=== PATIENT | female | born 1975 | race Caucasian/White ===

== ENCOUNTER 2022-01-28 09:14 | Emergency (ER) | payer OTHER, BC ==
[~2022-01-28] VITALS: Ht 162.6 cm; Wt 63.5 kg
[~2022-01-28 09:14] MED LIST: CYCLOBENZAPRINE10 MG PO; CYCLOBENZAPRINE5 MG PO; CYMBALTA30 MG PO; DAYPRO600 MG PO; GABAPENTIN100 MG PO; HYDROCODON-ACE1 EA10 PO; IBUPROFEN800 MG PO; NORCO 5-325 TA1 EACH PO; ROBAXIN-750750 MG PO; TRAMADOL HCL50 MG PO; TRAZODONE HCL100 MG PO; TRAZODONE HCL50 MG PO; ULTRAM50 MG PO; XANAX0.5 MG PO
--- OUTSIDE RECORDS SUMMARY | 2022-01-28 09:17 | XMS ---
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 Jaden has no Care Guidelines for this patient. Baldemar VISIT COUNT (12 MO.) 1 UZMA Villaseñor TOTAL 1 NOTE: Visits indicate total known visits. ED/C VISIT TRACKING (12 MO.) 01/28/2022 09:14 UZMA Joe [place] TYPE: Emergency COMPLAINT: - TIGHTNESS IN CHEST INPATIENT VISIT TRACKING (12 MO.) No inpatient visits to display in this time frame [email or web address]
[2022-01-28] MEDS ORDERED: BUSPIRONE HCL5 MG PO (09:38)
[2022-01-28] MEDS ORDERED: BUPROPION HCL100 MG PO (09:39)
[2022-01-28] MEDS ORDERED: REXULTI0.5 MG PO (09:39)
[2022-01-28] MEDS ORDERED: LAMOTRIGINE25 MG PO (09:40)
[2022-01-28] MEDS ORDERED: SEROQUEL200 MG PO (10:30)
--- NOTE | 2022-01-29 00:22 | EKG ---
[facility] [address] [facility] [place] [address] Signed Normal sinus rhythm Left anterior fascicular block Abnormal ECG When compared with ECG of 09-NOV-2016 00:17, Left anterior fascicular block is now present Inverted T waves have replaced nonspecific T wave abnormality in Inferior leads Confirmed by SANNA REYES MD ([id number]) on 01/29/2022 12:22:18 AM Electronically Signed By: SANNA REYES MD 01/29/2221 PATIENT NAME: SANTIAGO RAMEY Electrocardiogram DATE OF : 75 PHYSICIAN: SANNA REYES MD REPORT #: [id number] REPORT IS CONFIDENTIAL AND NOT TO BE RELEASED WITHOUT AUTHORIZATION
== END 2022-01-28 13:19 | disposition home or self-care (01) ==
LOC: ED 09:14
DX: R07.89 Other chest pain (principal); G47.00 Insomnia, unspecified; M19.90 Unspecified osteoarthritis, unspecified site; F17.200 Nicotine dependence, unspecified, uncomplicated; Z88.0 Allergy status to penicillin; Z88.2 Allergy status to sulfonamides; Z88.1 Allergy status to other antibiotic agents; Z79.899 Other long term (current) drug therapy; Z79.891 Long term (current) use of opiate analgesic
CPT/HCPCS: 36415; 71045; 80053; 84484; 85025; 93005; 93010; 99285-25; A9270-GY

== ENCOUNTER 2022-04-10 09:25 | Day surgery (SDC) | payer BC, OTHER ==
[~2022-04-10] VITALS: Ht 162.6 cm; Wt 63.6 kg
[~2022-04-10 09:25] MED LIST changes: +BUPROPION HCL100 MG PO; +BUSPIRONE HCL5 MG PO; +LAMOTRIGINE25 MG PO; +REXULTI0.5 MG PO; +SEROQUEL200 MG PO
[2022-04-10] MEDS ORDERED: IBUPROFEN600 MG PO (11:57)
[2022-04-10] MEDS ORDERED: OXYCODON-ACETA1 EAC2 PO (11:57)
--- NOTE | 2022-04-10 11:57 | NUR ---
04/10/22 Claudine Curran 1147- PT ARRIVES TO PACU EASILY AROUSABLE TO VOICE. PT UPDATED ABOUT WHERE SHE IS IN. PT NODS. PT REPORTS NO PAIN OR NAUSEA. FALLS RIGHT BACK TO SLEEP WHEN NOT BEING TALKED TO. RESP EVEN AND UNLABORED. OXYGEN SAT HIGH 90'S TO 100% ON 10L VIA MASK. 1149- OXYGEN TITRATED DOWN TO 6L VIA MASK. 1152- PT TRYING TO SCRATCH HER NOSE. OXYGEN TITRATED OFF. EDUCATED PT TO BE CAREFUL SCRATCHING HER NOSE. PT PROVIDED A WARM BLANKET PER HER REQUEST. 1157- PT RESTING IN BED WITH HER EYES CLOSED. RESP EVEN AND UNLABORED. OXYGEN SAT MID 90'S ON RA.
[2022-04-10] MEDS ORDERED: ACETAMINOPHEN500 MG PO (11:58)
--- NOTE | 2022-04-10 12:45 | NUR ---
1225-PATIENT BACK TO ROOM FROM PACU ON RA. RECEIVED REPORT FROM JER AU. PATIENT IS AWAKE. RESP EVEN AND UNLABORED. RATES PAIN 1/10 AND DENIES NAUSEA. DRESSING HAS A SMALL AMOUNT OF RED DRAINAGE. AT BEDSIDE. LIDA SULMAGGER TURNED ON. PROVIDED PATIENT WITH WATER AND CRACKERS. CALL LIGHT WITHIN REACH.
--- NOTE | 2022-04-10 13:54 | NUR ---
1340 PATIENT ABLE TO MEET DISCHARGE CRITERIA. PATIENT WAS GIVEN DISCHARGE INSTRUCTIONS AND UNDERSTOOD. NO QUESTIONS AT THIS TIME. IV D/C'D WNL. PATIENT DRESSED SELF AND TOLERATED WELL. PATIENT WAS WHEELED OUT OF FACILITY TO PRIVATE AUTO WITH .
--- NOTE | 2022-04-10 13:56 | NUR ---
PT ALERT, ORIENTED AND SENT HER ON ERRANDS PT FEELS SHE WILL NEED AT DC. PT SOMEWHAT ANXIOUS, GAVE ENCOURAGEMENT AND COMFORT. PT REQUESTED PRAYER JUSTO WILL BE HERE BEFORE DC. WILL FOLLOW NEEDED
--- NOTE | 2022-04-11 15:57 | OR ---
[facility] [address] [place], [place] [address] Signed DATE OF OPERATION: 04/10/2022 SURGEON: Joel Martínez MD PREOPERATIVE DIAGNOSIS: Painful right upper outer quadrant breast mass, 14 mm lobulated and solid. POSTOPERATIVE DIAGNOSIS: Painful right upper outer quadrant breast mass, 14 mm lobulated and solid, probable fibroadenoma. PROCEDURE: Excision of right upper outer quadrant breast mass. ANESTHESIA: General, LMA; Genesis Mac CRNA and local 10 mL of 0.25% Marcaine with epinephrine. INDICATIONS: This 46-year-old white woman is known to me from the past. She is a patient of Dr. Nabila Aceves. She has been noted to have an upper outer quadrant breast mass for over 10 years, but more recently it has become intensely painful. She also believes that it is enlarged. She has no family history of breast cancer. She underwent mammogram and ultrasound on March 24, 2022, confirming the lesion to be a multi-lobulated solid mass. The patient does not want to have an image-guided core biopsy, rather excisional biopsy considering the lesion is quite painful. The risks of bleeding, infection, cosmetic deformity, and need for other indicated procedures identified were reviewed with her, she understands and wished to proceed. FINDINGS: Wide excision of the mass was undertaken in the upper outer aspect of the right breast. Palpation of the lesion showed most likely to be a fibroadenoma. Dense breast tissue was noted elsewhere. There were no other findings of concern. DESCRIPTION OF PROCEDURE: The patient was brought to the operating room, given a general LMA type anesthetic. Preoperative antibiotic Ancef was given. Sequential compression device stockings used and heparin subcutaneously administered. Palpable mass was easily identified in the upper outer aspect of the right breast. The right breast was prepared with a spray Betadine solution and draped sterilely. A curvilinear incision was made directly over the mass the axilla itself. Dissection was carried through the dermis with Electronically Signed By: JOEL MARTÍNEZ MD 04/11/22 1557 PATIENT NAME: SANTIAGO RAMEY OPERATIVE REPORT DATE OF : 75 REPORT #: [id number] PHYSICIAN: JOEL MARTÍNEZ MD PCP: NABILA ACEVES MD REPORT IS CONFIDENTIAL AND NOT TO BE RELEASED WITHOUT AUTHORIZATION [facility] [address] [place], [place] [address] Signed electrocautery. The mass was easily palpable and rather firm. It was not tethered to the skin. An Allis clamp was applied to it and wide resection was undertaken with electrocautery. The parenchyma of the remaining breast was dense and consistent with normal breast tissue. The palpable mass was within the excised specimen. It was sent for permanent pathology. Electrocautery was used for hemostasis as were 2-0 Vicryl ties as necessary. The wound was closed in layers of interrupted 2-0 Vicryl and running subcuticular 3-0 Vicryl for the skin. Steri-Strips were applied. Cosmetic result was good. She was ultimately extubated and taken to the recovery room in good condition, having suffered no complications. Sponge, needle, and instrument counts reported as correct x3. Joel Martínez MD JM/MODL /[id number] cc: Nabila Aceves MD Copies: ~ Electronically Signed By: JOEL MARTÍNEZ MD 04/11/22 1557 PATIENT NAME: SANTIAGO RAMEY OPERATIVE REPORT DATE OF : 75 REPORT #: [id number] PHYSICIAN: JOEL MARTÍNEZ MD PCP: NABILA ACEVES MD REPORT IS CONFIDENTIAL AND NOT TO BE RELEASED WITHOUT AUTHORIZATION
--- NOTE | 2022-04-14 15:14 | PATH ---
[facility] [address] [facility] [place] [address] Signed SPECIMEN(S): A RIGHT BREAST SPECIMEN SOURCE: A. RIGHT BREAST CLINICAL HISTORY: Painful mass of right breast, upper outer quadrant. FINAL PATHOLOGIC DIAGNOSIS: Right breast mass: - Benign fibroadenoma. JVR:marc:[id number] MICROSCOPIC EXAMINATION: Histologic sections of all submitted blocks are examined by light microscopy. These findings, together with the gross examination, support the pathologic diagnosis. GROSS DESCRIPTION: The specimen, labeled "Chelsea Rivero," and designated on the requisition "right breast mass," is received in formalin and consists of 10-gram oriented portion of yellow-smart fibroadipose tissue that is 3.9 x 3.2 x 2.5 cm. A black suture is present identifying the nodule. The surface is inked black and the remainder of the specimen is inked blue. The specimen is serially sectioned perpendicular to the long axis revealing a 1.6 x 1.6 x 1.5 cm pink, ill-defined rubbery nodule with a glistening cut surface. The nodule abuts the blue and the black inked cut surfaces. Director Process sections are submitted in cassettes A1-A4. Cold ischemia time: Insufficient data to calculate. Approximate Formalin time:22 hours. FB (under the direct supervision of a pathologist) The Gross Description was prepared using a voice recognition system. The report was reviewed for accuracy; however, sound-alike word errors, addition and/or deletions may occur. If there is any question about this report, please contact Client Services. PERFORMING LABORATORY: The technical component was performed by [facility], [address] [place] [id number] (CLIA# [id number]). Professional interpretation was PATIENT NAME: CHELSEA RIVERO PATHOLOGY DATE OF : 75 REPORT #: [id number] PHYSICIAN: [facility] PCP: VARGAS KILGORE MD REPORT IS CONFIDENTIAL AND NOT TO BE RELEASED WITHOUT AUTHORIZATION [facility] [address] [place] [id number] Signed performed by [facility] [address] [address] (CLIA#: [id number]). Diagnostician: Esau Eason MD Pathologist Electronically Signed 04/14/2022 Copies: ~ PATIENT NAME: CHELSEA RIVERO PATHOLOGY DATE OF : 75 REPORT #: [id number] PHYSICIAN: [facility] PCP: VARGAS KILGORE MD REPORT IS CONFIDENTIAL AND NOT TO BE RELEASED WITHOUT AUTHORIZATION
== END 2022-04-10 13:40 | disposition home or self-care (01) ==
LOC: DS 09:25
PROVIDERS: ATTEND Surgery
PROC: 0HBT0ZZ Excision of Right Breast, Open Approach (ICD-10-PCS; principal; 2022-04-10 10:30)
DX: D24.1 Benign neoplasm of right breast (principal); F31.9 Bipolar disorder, unspecified; Z90.49 Acquired absence of other specified parts of digestive tract; Z87.891 Personal history of nicotine dependence; Z90.711 Acquired absence of uterus with remaining cervical stump; Z88.0 Allergy status to penicillin; Z88.2 Allergy status to sulfonamides
CPT/HCPCS: J0690; J1100; J1644; J1885; J2001; J2250; J2405; J2704; J3010; J7121